=== PATIENT | female | born 1975 | race Caucasian/White ===

== ENCOUNTER 2024-04-25 20:53 | Emergency (ER) | payer OTHER ==
[2024-04-25 21:04] VITALS: BP 136/87; PULSE 88; RESP 16; TEMP 99.1; BMI 20.3
== END 2024-04-25 22:38 | disposition home or self-care (01) ==
LOC: FER 20:53
DX: S16.1XXA Strain of muscle, fascia and tendon at neck level, initial encounter (principal); S09.90XA Unspecified injury of head, initial encounter; V47.5XXA Car driver injured in collision with fixed or stationary object in traffic accident, initial encounter; Y92.410 Unspecified street and highway as the place of occurrence of the external cause
CPT/HCPCS: 70160-TC-FY; 70450-TC; 72125-TC; 99284-25